=== PATIENT | male | born 1960 | race Hispanic/Latino ===

== ENCOUNTER 2016-12-06 11:51 | Emergency (ER) | payer OTHER ==
[2016-12-06 12:10] VITALS: RESP 16; TEMP 97; O2SAT 97
[2016-12-06 12:23] VITALS: BP 121/77; PULSE 61
[2016-12-06] MEDS ORDERED: Lidocaine 1% Inj (20ml) IJ STA (13:19)
[2016-12-06] MEDS ORDERED: Oxycodone/Acetaminophen 5/325 mg Tab PO STA (13:23)
--- NOTE | 2016-12-06 13:23 | ED PDOC ---
HPI: General Adult Time Seen by Provider: 12/06/16 13:17 Chief Complaint (Nursing): Abnormal Skin Integrity Chief Complaint (Provider): finger injury History Per: Patient Additional Complaint(s): 55-year-old right-hand dominant male presents with laceration to left third digit. Patient states he was at work when he was using a saw and he injured his finger. The patient also has dislocation to same digit. He is unable to bend his finger. Patient is not sure of last tetanus. He became nauseous and almost vomited but states that nausea has subsided. Past Medical History Reviewed: Historical Data, Nursing Documentation, Vital Signs Vital Signs: Last Vital Signs Temp 97 F L 12/06/16 12:08 Pulse 61 12/06/16 12:22 Resp 16 12/06/16 12:08 BP 121/77 12/06/16 12:22 Pulse Ox 97 12/06/16 16:20 - Medical History PMH: Depression, HTN - Family History Family History: States: No Known Family Hx - Living Arrangements Living Arrangements: With Family - Social History Current smoker - smoking cessation education provided: No Alcohol: Social Drugs: Denies - Immunization History Hx Tetanus Toxoid Vaccination: No (not sure of last booster) - Home Medications Home Medications: Ambulatory Orders Medication Instructions Recorded Amoxicillin/Clavulanate [Augmentin 1 tab PO BID #14 tab 12/06/16 875 MG-125 MG] oxyCODONE/Acetaminophen [Percocet 1 ea PO Q6H PRN #10 tab 12/06/16 5/325 mg Tab] - Allergies Allergies/Adverse Reactions: Allergies Allergy/AdvReac Type Severity Reaction Status Date / Time No Known Allergies Allergy Verified 12/06/16 12:10 Review of Systems ROS Statement: Except As Marked, All Systems Reviewed And Found Negative Musculoskeletal: Positive for: Other (laceration and dislocation to left 3rd digit) Physical Exam - Reviewed Nursing Documentation Reviewed: Yes Vital Signs Reviewed: Yes - Physical Exam Appears: Positive for: Well, Non-toxic, No Acute Distress Skin: Negative for: Rash Eye Exam: Positive for: Normal appearance Cardiovascular/Chest: Positive for: Regular Rate, Rhythm Respiratory: Positive for: Normal Breath Sounds Extremity: Positive for: Other (bony deformity noted to left 3rd digit PIP, flap laceration noted to distal aspect of left 3rd digit with macerated wound borders, no active bleeding) Neurologic/Psych: Positive for: Alert, Oriented - ECG O2 Sat by Pulse Oximetry: 97 Pulse Ox Interpretation: Normal - Other Rad Left hand x-ray X-Ray: Interpreted by Me, Viewed By Me X-Ray Interpretation: PIP dislocation 3rd digit Medical Decision Making Medical Decision Makin55 year old with left hand injury. Plan: X-ray left hand Tetanus booster PO percocet for pain IV ancef dose Procedure note: Under sterile conditions left third digit was anesthetized via digital block using 10 mL of 1% lidocaine without epinephrine, good anesthesia was achieved. 3rd digit PIP was easily reduced using traction/countertraction method. Laceration to distal aspect of same digit was irrigated copiously with normal saline and Betadine, macerated wound borders were revised as best as possible. Flap was realigned and reattached the remainder of the digit using 8 simple interrupted 5-0 chromic sutures. Wound was approximated as best as possible given macerated wound borders and tissue loss. Good bleeding control was achieved. Sterile nonstick dressing was applied overlying sutured laceration. Volar splint was applied to affected digit, N/V intact s/p placement. Post reduction film indicates that dislocated PIP is now in place. Case was d/w hand collections officer, Dr Carter. He states to provide patient with x-ray copies on disc and have him call office to arrange for follow up visit. Patient was discharged with rx percocet and augmentin. Disposition - Clinical Impression Clinical Impression: Finger laceration, Finger dislocation, Need for tetanus booster - Patient ED Disposition Is Patient to be Admitted: No Counseled Patient/Family Regarding: Studies Performed, Need For Followup, Rx Given - Disposition Referrals: Obie Carter MD [Staff Provider] - Disposition: Routine/Home Disposition Time: 15:39 Condition: STABLE Additional Instructions: Keep wound completely dry for 24 hours. After 24 hours wash gently with soap and water, pat dry and apply thin film of Neosporin, then re-dress with nonstick gauze and tape. Take prescription medications as directed. Take over- the-counter Advil for mild pain and prescription pain medication for more severe pain. Call hand specialist first thing in the morning to arrange for a follow-up visit. Prescriptions: Amoxicillin/Clavulanate [Augmentin 875 MG-125 MG] 1 tab PO BID #14 tab oxyCODONE/Acetaminophen [Percocet 5/325 mg Tab] 1 ea PO Q6H PRN #10 tab PRN Reason: Pain, Severe (8-10) Instructions: Finger Laceration (ED), Finger Dislocation (ED), Diphtheria/ Acellular Pertussis/Tetanus Booster Vaccine (Tdap) (Injection) Forms: [employer] ([place]ian)
[2016-12-06] MEDS ORDERED: CEFAZOLIN IVPB STA (13:32)
[2016-12-06] MEDS ORDERED: NS IVPB STA (13:32)
[2016-12-06] MEDS ORDERED: Lidocaine 1% Inj (20ml) ONE (14:00)
[2016-12-06] MEDS ORDERED: Povidone Iodine Topical 10% Sol ONE (14:28)
--- NOTE | 2016-12-06 14:28 | RAD ---
PROCEDURE: Left Hand Radiographs. Caps HISTORY: trauma COMPARISON: None. FINDINGS: BONES: Dislocation 3rd digit proximal interphalangeal joint level. No apparent fracture. JOINTS: Normal. No osteoarthritic changes. SOFT TISSUES: No visulaized radiopaque/visualized foreign body. Soft tissue injury/laceration at the level of the distal phalanx. OTHER FINDINGS: None. IMPRESSION: Third digit dislocation. Soft tissue swelling attests to the acuity of the dislocation without evidence of fracture.
--- NOTE | 2016-12-06 16:23 | RAD ---
PROCEDURE: Left Hand Radiographs. HISTORY: post reduction COMPARISON: December 05, 2016. FINDINGS: BONES: Satisfactory alignment of previously identified dislocated 3rd digit. JOINTS: Normal. No osteoarthritic changes. SOFT TISSUES: Normal. OTHER FINDINGS: None. IMPRESSION: Anatomical alignment is return to 3rd digit following close reduction.
== END 2016-12-06 16:55 | disposition home or self-care (01) ==
LOC: H.ER 11:51
DX: S63.283A Dislocation of proximal interphalangeal joint of left middle finger, initial encounter (principal); S61.213A Laceration without foreign body of left middle finger without damage to nail, initial encounter; W29.8XXA Contact with other powered hand tools and household machinery, initial encounter; Y93.89 Activity, other specified; Y92.69 Other specified industrial and construction area as the place of occurrence of the external cause; Y99.0 Civilian activity done for income or pay; Z23 Encounter for immunization
CPT/HCPCS: 26775; 73130; 90471; 90715; 96365; 99283; J0690